=== PATIENT | female | born 1970 | race African-American/Black ===

== ENCOUNTER 2018-11-24 14:15 | Inpatient (IN) | payer OTHER ==
[~2018-11-24] VITALS: Ht 160 cm; Wt 74.0 kg
[2018-11-24] MEDS ORDERED: SODIUM CHLORIDE 0.9% 1,000 ML IVB ONE (14:34)
[2018-11-24 15:17] LABS: Basophils # (auto) 0.1 uL; Basophils % (auto) 1.1 % (0.0-2.0); Eosinophils # (auto) 0 uL; Eosinophils % (auto) 0.7 % (0.0-7.0); Lymphocytes # (auto) 2.2 uL; Lymphocytes % (auto) 37.9 % (10.0-50.0); Mean Corpuscular Hemoglobin 29.1 pg (28.0-32.0); Mean Corpuscular Hgb Conc. 32.6 g/dL (32.0-36.0); Mean Corpuscular Volume 89.3 fL (80.0-100.0); Monocytes # (auto) 0.4 uL; Monocytes % (auto) 7.7 % (0.0-12.0); Neutrophils % (auto) 52.6 % (37.0-80.0); Nucleated Red Blood Cells % 0.1 %; Platelet Count (auto) 250 10^3/uL (140-450); Red Blood Cells 4.82 10^6/uL (4.0-5.20); Red Cell Distribution Width 15.1 % (11.8-14.3); White Blood Cell 5.7 10^3/uL (4.4-10.8)
[2018-11-24 15:32] LABS: Albumin 3.6 g/dL (3.4-5.0); Calcium 8.6 mg/dL (8.5-10.1); INR < 0.93 (0.9-1.15); Magnesium 2.3 mg/dL (1.6-2.6)
[2018-11-24 15:37] LABS: BUN/Creatinine Ratio 12.2; Bilirubin, Total 0.3 mg/dL (0.2-1.0); Total Protein 8.6 g/dL (6.4-8.2)
[2018-11-24] MEDS ORDERED: HEPARIN 1,000 UNITS/ml 1ML VIAL IV ONE (16:00)
[2018-11-24] MEDS ORDERED: MORPHINE SULF INJ 2 MG/ML SYRINGE 1ML IV PRN ×2 (16:30)
[2018-11-24] MEDS ORDERED: HYDROcodone-ACET 5/325MG TAB PO PRN (16:30)
[2018-11-24] MEDS ORDERED: ACETAMINOPHEN 500 MG TAB PO PRN (16:30)
[2018-11-24] MEDS ORDERED: NITROGLYCERIN 0.4 MG SL TAB SL PRN (16:30)
[2018-11-24] MEDS ORDERED: ONDANSETRON HCL 4 MG/2 ML VIAL IV PRN (16:30)
[2018-11-24] MEDS ORDERED: hydrALAZINE HCL 20 MG/ML VL IV ONE (16:45)
[2018-11-24] MEDS ORDERED: NITROGLYCERIN 0.4MG/HR TOPICAL PATCH TD ONE (17:00)
[2018-11-24] MEDS ORDERED: cloNIDine HCL 0.1 MG TAB PO ONE (17:00)
[2018-11-24] MEDS ORDERED: METOPROLOL TARTRATE 1MG/1ML-5ML VIAL IV ONE (17:00)
[2018-11-24] MEDS ORDERED: CLOPIDOGREL 300 MG TAB PO ONE (17:15)
[2018-11-24] MEDS: SODIUM CHLORIDE 0.9% 1,000 ML IV SCH ×2 (17:36→20:37)
[2018-11-24] MEDS: hydrALAZINE HCL 20 MG/ML VL IV PRN (18:21)
[2018-11-24] MEDS ORDERED: HEPARIN DRIP/D5W 100UNITS/ML 250 ML IV SCH ×2 (19:43→21:30)
[2018-11-24] MEDS ORDERED: LIDOCAINE 2%HCL (LOCAL ANESTH.) INJ 20ML MDV ONE (20:36)
[2018-11-24] MEDS ORDERED: IOHEXOL 350 MG/ML 100ML IJ ONE ×2 (20:36→21:52)
[2018-11-24] MEDS: NITROGLYCERIN 50MG/250ML 250 ML IV SCH (20:39)
[2018-11-24] MEDS ORDERED: ANGIOMAX 250 MG VIAL IV ONE (20:42)
[2018-11-24] MEDS ORDERED: ATROPINE SULFATE 1 MG/1 ML VIAL ONE (20:43)
[2018-11-24] MEDS ORDERED: ADENOSINE 6 MG/2 ML INJ IV ONE (20:43)
[2018-11-24] MEDS ORDERED: EPINEPHrine HCL 1 MG/10 ML SYRG ONE (20:43)
[2018-11-24] MEDS ORDERED: MIDAZOLAM HCL 1MG/1ML-2 ML VIAL ONE (20:43)
[2018-11-24] MEDS ORDERED: fentaNYL CITRATE 100 MCG/2 ML VL ONE (20:43)
[2018-11-24] MEDS ORDERED: NICARDIPINE 25 MG/10 ML VIAL IV ONE (20:43)
[2018-11-24] MEDS ORDERED: SODIUM CHL 0.9% 50 ML ONE (20:44)
[2018-11-24] MEDS ORDERED: LABETALOL HCL 5 MG/ML ML 20ML VIAL IV ONE (21:38)
[2018-11-24] MEDS ORDERED: ENOXAPARIN SOD 80 MG/0.8ML SYRINGE SC SCH ×2 (22:00)
[2018-11-24] MEDS ORDERED: METOPROLOL TARTRATE 25 MG TAB PO SCH (22:00)
[2018-11-24] MEDS ORDERED: ATORVASTATIN 20 MG TAB PO SCH (22:00)
[2018-11-24] MEDS ORDERED: DOPamine 1600MCG/ML D5W 0 ML IV ONE (22:10)
[2018-11-24 22:45] LABS: Urine Bacteria NONE SEEN /hpf (None Seen); Urine Blood Negative /uL (Negative); Urine Specific Gravity 1.013 (1.001-1.035); Urine WBC 1 /hpf (0 - 5)
[2018-11-24 22:52] LABS: Alcohol, Urine < 3.0 mg/dL (0-5); Amphetamine Screen, Urine NEGATIVE (NEGATIVE); Barbiturate Scree,Urine NEGATIVE (NEGATIVE); Benzodiazephine Screen, Urine NEGATIVE (NEGATIVE); Cannabinoid Screen, Urine POSITIVE (NEGATIVE); Cocaine Screen, Urine NEGATIVE (NEGATIVE); Opiate Scree,Urine NEGATIVE (NEGATIVE); Phencyclidine Screen, Urine NEGATIVE (NEGATIVE)
[2018-11-25] VITALS (34 sets, daily range): BP systolic 97–166; BP diastolic 56–108
--- NOTE | 2018-11-25 00:05 | NUR ---
ICU pt S/P Cardiac Cath Report received from LEO Kapoor. FELISA HOROWITZ brought to bed 109 following Cardiac catheterization, on shelter monitor and portable oxygen. Patient transferred to ICU bed, connected to ICU monitoring and oxygen. Catheter remains in right groin. Patient educated on need to keep leg straight and flat. Patient verbalized understanding. Site assessed for any bleeding, redness or swelling. Pedal pulses on affected leg assessed for positive tissue perfusion. Patient instructed on need to notify staff immediately if any pain, burning or wetness to site, and any lower back pain. Patient educated on cardiac medications. Currently on tridil gtt at 12mcg/min. Will titrate according to blood pressure. Full assessment done see interventions. All questions and concerns addressed, patient verbalized understanding of all education and instruction.
[2018-11-25] MEDS: hydrALAZINE HCL 20 MG/ML VL IV PRN ×2 (03:52→18:27)
[2018-11-25 04:04] LABS: Basophils # (auto) 0 uL; Basophils % (auto) 0.6 % (0.0-2.0); Eosinophils # (auto) 0 uL; Hematocrit 38.8 % (36.0-46.0); Lymphocytes # (auto) 1.6 uL; Lymphocytes % (auto) 26.3 % (10.0-50.0); Mean Corpuscular Hgb Conc. 33.5 g/dL (32.0-36.0); Mean Corpuscular Volume 89.5 fL (80.0-100.0); Monocytes # (auto) 0.4 uL; Monocytes % (auto) 5.7 % (0.0-12.0); Neutrophils # (auto) 4.2 uL; Neutrophils % (auto) 67.4 % (37.0-80.0); Nucleated Red Blood Cells % 0.1 %; Platelet Count (auto) 222 10^3/uL (140-450); Red Blood Cells 4.34 10^6/uL (4.0-5.20); Red Cell Distribution Width 15.1 % (11.8-14.3); White Blood Cell 6.2 10^3/uL (4.4-10.8)
[2018-11-25 04:10] LABS: BUN/Creatinine Ratio 15.9; Calcium 8.1 mg/dL (8.5-10.1); Potassium 3.8 mmol/L (3.5-5.1)
[2018-11-25 04:11] LABS: INR 0.95 (0.9-1.15); Partial Thromboplastin Time 31.9 sec (23.64-32.05)
--- NOTE | 2018-11-25 05:00 | NUR ---
TRIDIL GTT TITRATED OFF AT THIS TIME. B/P 128/68
[2018-11-25 05:05] LABS: Cholesterol 461 mg/dL (< 200); HDL Cholesterol 46 mg/dL (40-59); LDL Cholesterol 322 mg/dL (< 100); Triglycerides 342 mg/dL (< 150)
[2018-11-25] MEDS ORDERED: METOPROLOL TARTRATE 50 MG TAB PO SCH (06:00)
[2018-11-25] MEDS: SODIUM CHLORIDE 0.9% 1,000 ML IV SCH ×2 (07:07→12:45)
--- NOTE | 2018-11-25 07:30 | NUR ---
Opening Shift Note: Report received from Charla BAILEY Patient had [facility] one stent placed by Dr. Robertson. Patient did well overnight. See interventions for further details.
--- NOTE | 2018-11-25 07:37 | NUR ---
End of shift note Report and care endorsed to day shift rn
[2018-11-25] MEDS: CLOPIDOGREL BISULFATE 75 MG TAB PO SCH (09:36)
[2018-11-25] MEDS: ASPirin-EC 81 mg tab PO SCH (09:36)
[2018-11-25] MEDS: LISINOPRIL 10 MG TAB PO SCH (09:36)
[2018-11-25] MEDS: FAMOTIDINE 20 MG TAB PO SCH (09:36)
--- NOTE | 2018-11-25 10:46 | NUR ---
Jennifer SEWING MACHINE OPERATOR PLASTIC ZIPPER at bedside: New orders [facility] scheduled for this afternoon, RCA needs stenting. Consent printed out and signed. lab courier ordered.To start heparin drip after Coag levels resulted.
[2018-11-25 11:49] LABS: INR 0.95 (0.9-1.15)
--- NOTE | 2018-11-25 12:30 | NUR ---
Dr. Alvarado at bedside: Went over disease process and getting control fo cholesterol levels. Patient needs medication adjustments. To follow up with Marshall after she is discharged from hospital.
--- NOTE | 2018-11-25 13:15 | NUR ---
Patient transported to test lab technician.
[2018-11-25] MEDS ORDERED: ANGIOMAX 250 MG VIAL IV ONE ×2 (13:20→14:28)
[2018-11-25] MEDS ORDERED: fentaNYL CITRATE 100 MCG/2 ML VL ONE ×2 (13:20→14:17)
[2018-11-25] MEDS ORDERED: IODIXANOL 320MG/ML 100ML BTL IV ONE (13:21)
[2018-11-25] MEDS ORDERED: MIDAZOLAM HCL 1MG/1ML-2 ML VIAL ONE ×4 (13:21→15:39)
[2018-11-25] MEDS ORDERED: SODIUM CHL 0.9% 50 ML ONE ×2 (13:21→14:28)
[2018-11-25] MEDS ORDERED: LIDOCAINE 2%HCL (LOCAL ANESTH.) INJ 20ML MDV ONE (13:21)
[2018-11-25] MEDS ORDERED: EPINEPHrine HCL 1 MG/10 ML SYRG ONE (13:28)
[2018-11-25] MEDS ORDERED: DOPamine 1600MCG/ML D5W 0 ML IV ONE (13:28)
[2018-11-25] MEDS ORDERED: ATROPINE SULFATE 1 MG/1 ML VIAL ONE (13:28)
[2018-11-25] MEDS ORDERED: VERAPAMIL 2.5MG/ML INJ 2ML VIAL IV ONE (13:29)
[2018-11-25] MEDS ORDERED: ONDANSETRON HCL 4 MG/2 ML VIAL ONE (14:08)
[2018-11-25] MEDS ORDERED: diphenhdrAMINE HCL 50 MG/1 ML VL ONE (14:08)
[2018-11-25] MEDS: METOPROLOL TARTRATE 50 MG TAB PO SCH ×2 (16:29→22:00)
--- NOTE | 2018-11-25 16:35 | NUR ---
Pt being admitted to ICU: COMING BACK FROM SUPERVISOR TUMBLERS with TR BAND to left wrist. CARLOS MANUELFELISA admitted to ICU via gurney on potline monitor, and portable 02. Patient transfered to bed, connected to ICU monitoring and oxygen. Patient lethargic,report received at bedside. TR band to left wrist. Aspirate air per protocol.Patient stable.
[2018-11-25] MEDS: NITROGLYCERIN 50MG/250ML 250 ML IV SCH (18:22)
--- NOTE | 2018-11-25 18:57 | NUR ---
End of Shift Note: Endorsed care to LEO Castellon.
--- NOTE | 2018-11-25 19:20 | NUR ---
open received report from day rn, assumed care of female pt. pt is room air, vs wnl. pt is alert and orientated x4, pt is connected to icu monitors. resperations equal and unlabored on room air. pt has iv 20 g to r forarm, iv to L forarm 20g. ivs are patent, dressings are clean dry and intact, no redness or swelling at the iv sites at this time. pt is able to ambulate. pillows in place under pts elbows to offload pressure for safety and comfort. bed is lowest position, wheels locked. pt educated continuous improvement specialist light, pt verbalized understanding. call light within reach. pt denies pain at this time. pt is in full view of nurses station, will continue to care for and monitor.
--- NOTE | 2018-11-25 19:45 | NUR ---
family at bedside
--- NOTE | 2018-11-25 21:30 | NUR ---
toilet pt called for assistance to be disconnected so the pt can get up and go to the toilet. pt was disconnected from icu monitors . pt asked if she would like assistance to the toilet, pt stated " no thank you, i got it." pt walked to toilet without need of assistance, pt returned to bed without assistance. pt used call light to inform rn that she needs to be re connected to icu monitors. pt re connected to icu monitors. pt denies pain at this time.
[2018-11-25] MEDS: ENOXAPARIN SOD 80 MG/0.8ML SYRINGE SC SCH (22:00)
[2018-11-25] MEDS: ATORVASTATIN 20 MG TAB PO SCH (22:32)
--- NOTE | 2018-11-25 22:40 | NUR ---
pt watching tv pt sitting up in bed watching tv. vs wnl, no ss of distress noted at this time, will continue to care for and monitor
--- NOTE | 2018-11-25 23:59 | NUR ---
pt appears to be sleeping pt appears to be sleeping, hob 30*, vs wnl, no ss of distress noted at this time
[2018-11-26] VITALS (25 sets, daily range): BP systolic 84–144; BP diastolic 44–104
--- NOTE | 2018-11-26 04:00 | NUR ---
hygiene bed bath provided and jenn change. suction tubing and canisters changed. pt tolerates care.
[2018-11-26 05:20] LABS: Basophils # (auto) 0.1 uL; Basophils % (auto) 0.9 % (0.0-2.0); Eosinophils # (auto) 0 uL; Eosinophils % (auto) 0.1 % (0.0-7.0); Hematocrit 35.5 % (36.0-46.0); Hemoglobin 11.8 g/dL (12.2-16.2); Lymphocytes # (auto) 2.7 uL; Lymphocytes % (auto) 41.5 % (10.0-50.0); Mean Corpuscular Hemoglobin 29.9 pg (28.0-32.0); Mean Corpuscular Hgb Conc. 33.3 g/dL (32.0-36.0); Mean Corpuscular Volume 89.8 fL (80.0-100.0); Monocytes # (auto) 0.4 uL; Monocytes % (auto) 6.8 % (0.0-12.0); Neutrophils # (auto) 3.3 uL; Neutrophils % (auto) 50.7 % (37.0-80.0); Nucleated Red Blood Cells % 0.1 %; Platelet Count (auto) 198 10^3/uL (140-450); Red Blood Cells 3.95 10^6/uL (4.0-5.20); Red Cell Distribution Width 15.1 % (11.8-14.3); White Blood Cell 6.4 10^3/uL (4.4-10.8)
[2018-11-26 05:46] LABS: Calcium 8.6 mg/dL (8.5-10.1); Potassium 3.9 mmol/L (3.5-5.1)
[2018-11-26 05:48] LABS: BUN/Creatinine Ratio 16.2
[2018-11-26] MEDS: SODIUM CHLORIDE 0.9% 1,000 ML IV SCH (05:53)
--- NOTE | 2018-11-26 07:15 | NUR ---
Opening Shift Note: Report received from Cande BAILEY Patient did well overnight, SR on the monitor. See Interventions for further details.
--- NOTE | 2018-11-26 08:45 | NUR ---
Jennifer GONZALEZ at bedside- Told her that we already started her on metoprolol for HTN, ordered by Dr. Alvarado.
--- NOTE | 2018-11-26 09:13 | NUR ---
Nutrition education: Went over foods that are considered heart healthy foods for plaque reduction or prevention in the arteries, recommended by the [place] [employer]. Patient responded well to the education.
[2018-11-26] MEDS: hydrALAZINE HCL 20 MG/ML VL IV PRN (09:26)
[2018-11-26] MEDS: FAMOTIDINE 20 MG TAB PO SCH (11:01)
[2018-11-26] MEDS: METOPROLOL TARTRATE 50 MG TAB PO SCH ×2 (11:01→22:46)
[2018-11-26] MEDS: ASPirin-EC 81 mg tab PO SCH (11:01)
[2018-11-26] MEDS: CLOPIDOGREL BISULFATE 75 MG TAB PO SCH (11:01)
[2018-11-26] MEDS: LISINOPRIL 10 MG TAB PO SCH (11:02)
[2018-11-26] MEDS: ENOXAPARIN SOD 80 MG/0.8ML SYRINGE SC SCH ×2 (11:02→22:47)
--- NOTE | 2018-11-26 12:20 | NUR ---
Dr. Alvarado at bedside: Repeat angio tomorrow. Colace for constipation.
[2018-11-26] MEDS ORDERED: DOCUSATE SOD 100 MG CAP PO PRN (15:45)
--- NOTE | 2018-11-26 18:00 | NUR ---
Patient eating healthy dinner that sister brought her.
[2018-11-26] MEDS: NITROGLYCERIN 50MG/250ML 250 ML IV SCH (18:07)
--- NOTE | 2018-11-26 18:08 | NUR ---
Colace given for constipation.
--- NOTE | 2018-11-26 19:06 | NUR ---
End of Shift Note: Endorsed care to LEO Castellon.
--- NOTE | 2018-11-26 19:15 | NUR ---
open received report from day rn, assumed care of female pt. vs wnl. pt is alert and orientated x4, pt is connected to icu monitors. respirations equal and unlabored on room air. pt has iv 20 g to r forearm, iv to L forearm 20g. ivs are patent, dressings are clean dry and intact, no redness or swelling at the iv sites at this time. pt is able to ambulate. pillows in place under pts elbows to offload pressure for safety and comfort. pt is sitting in bed and appears to be listening to music, hob 30*, bed is lowest position, wheels locked. pt educated net developer consultant light, pt verbalized understanding. call light within reach. pt denies pain at this time. pt is in full view of nurses station, will continue to care for and monitor.
--- NOTE | 2018-11-26 21:45 | NUR ---
npo after midnight pt informed she needs to remain npo (nothing by mouth) after midnight. pt verbalized understanding.
[2018-11-26] MEDS: ATORVASTATIN 20 MG TAB PO SCH (22:46)
[2018-11-27] VITALS (43 sets, daily range): BP systolic 97–199; BP diastolic 51–109
--- NOTE | 2018-11-27 03:50 | NUR ---
hygiene jenn changed , suction canisters changed. vs wnl, no ss of distress noted at this time.
--- NOTE | 2018-11-27 05:07 | NUR ---
sleeping pt appears to be sleeping in bed. hob 30*,2 side rails locked. vs wnl. no ss of distress noted at this time.
[2018-11-27] MEDS: SODIUM CHLORIDE 0.9% 1,000 ML IV SCH ×2 (07:00→19:06)
--- NOTE | 2018-11-27 08:00 | NUR ---
ASSESSMENT COMPLETED SEE INTERVENTIONS, PATIENT A/O X4, DENIES ANY PAIN INCLUDING ANY CHEST PAIN, VS STABLE. WALKED STEADILY WITH NONSKID SOCKS TO USE TOILET/SINK. BACK TO BED AND CALL LIGHT IN REACH.
--- NOTE | 2018-11-27 08:20 | NUR ---
THERMOMETER PRODUCTION WORKER CALLED AND STATED OK FOR LIGHT BREAKFAST DUE TO PROCEDURE LATER THIS AFTERNOON. PATIENT GIVEN BREAKFAST TRAY.
[2018-11-27] MEDS: ENOXAPARIN SOD 80 MG/0.8ML SYRINGE SC SCH ×2 (10:00→22:02)
[2018-11-27] MEDS: FAMOTIDINE 20 MG TAB PO SCH (10:00)
[2018-11-27] MEDS: CLOPIDOGREL BISULFATE 75 MG TAB PO SCH (10:00)
[2018-11-27] MEDS: ASPirin-EC 81 mg tab PO SCH (10:07)
[2018-11-27] MEDS: LISINOPRIL 10 MG TAB PO SCH (10:11)
[2018-11-27] MEDS: METOPROLOL TARTRATE 50 MG TAB PO SCH ×2 (10:11→22:02)
--- NOTE | 2018-11-27 10:18 | NUR ---
PATIENT GIVEN ASA ORDERED WITH VERBAL OK FROM SAMMY GONZALEZ. AWARE RN HELD LOVENOX/PLAVIX FOR HEART CATH PROCEDURE LATER THIS AFTERNOON.
[2018-11-27 10:23] LABS: Basophils # (auto) 0.1 uL; Basophils % (auto) 1.6 % (0.0-2.0); Eosinophils # (auto) 0 uL; Eosinophils % (auto) 0.5 % (0.0-7.0); Hematocrit 37.2 % (36.0-46.0); Hemoglobin 12.3 g/dL (12.2-16.2); Lymphocytes # (auto) 2.8 uL; Lymphocytes % (auto) 52.4 % (10.0-50.0); Mean Corpuscular Hemoglobin 29.5 pg (28.0-32.0); Mean Corpuscular Hgb Conc. 33.1 g/dL (32.0-36.0); Mean Corpuscular Volume 88.9 fL (80.0-100.0); Monocytes # (auto) 0.5 uL; Monocytes % (auto) 8.9 % (0.0-12.0); Neutrophils # (auto) 1.9 uL; Neutrophils % (auto) 36.6 % (37.0-80.0); Nucleated Red Blood Cells % 0.1 %; Platelet Count (auto) 205 10^3/uL (140-450); Red Blood Cells 4.18 10^6/uL (4.0-5.20); Red Cell Distribution Width 14.8 % (11.8-14.3); White Blood Cell 5.2 10^3/uL (4.4-10.8)
[2018-11-27 10:58] LABS: Albumin 3.4 g/dL (3.4-5.0); BUN/Creatinine Ratio 17.4; Calcium 8.6 mg/dL (8.5-10.1); Magnesium 2.2 mg/dL (1.6-2.6)
[2018-11-27 11:00] LABS: INR < 0.93 (0.9-1.15); Partial Thromboplastin Time 32.7 sec (23.64-32.05)
[2018-11-27 11:01] LABS: Bilirubin, Total 0.3 mg/dL (0.2-1.0); Total Protein 7.4 g/dL (6.4-8.2)
[2018-11-27] MEDS: hydrALAZINE HCL 20 MG/ML VL IV PRN (11:02)
--- NOTE | 2018-11-27 11:06 | NUR ---
APRESOLINE GIVEN FOR SBP ABOVE 160 -SEE VS SPREADSHEET
--- NOTE | 2018-11-27 11:55 | NUR ---
Estimated needs based on AJBW 57.6 kg-maintenance factors 2488-5660 kcal (22-25 kcal/kg) 46-58 g protein (0.8-1.0 g/kg) Addendum: 11/27/18 at [address] Amended: Links added.
--- NOTE | 2018-11-27 12:00 | NUR ---
SEE VS SPREADSHEET SBP REDUCED SINCE APRESOLINE GIVEN
[2018-11-27] MEDS ORDERED: LIDOCAINE 2%HCL (LOCAL ANESTH.) INJ 20ML MDV ONE (14:56)
[2018-11-27] MEDS ORDERED: IOHEXOL 350 MG/ML 100ML IJ ONE ×2 (14:56→15:22)
--- NOTE | 2018-11-27 15:04 | NUR ---
TRANSPORTED IN STABLE CONDITION TO RN [place] FOR PROCEDURE
[2018-11-27] MEDS ORDERED: MIDAZOLAM HCL 1MG/1ML-2 ML VIAL ONE (15:11)
[2018-11-27] MEDS ORDERED: fentaNYL CITRATE 100 MCG/2 ML VL ONE (15:11)
[2018-11-27] MEDS ORDERED: ANGIOMAX 250 MG VIAL IV ONE ×2 (15:11→16:32)
[2018-11-27] MEDS ORDERED: IODIXANOL 320MG/ML 100ML BTL IV ONE (15:12)
[2018-11-27] MEDS ORDERED: SODIUM CHL 0.9% 50 ML ONE ×2 (15:12→16:32)
[2018-11-27] MEDS ORDERED: EPINEPHrine HCL 1 MG/10 ML SYRG ONE (15:36)
[2018-11-27] MEDS ORDERED: ATROPINE SULFATE 1 MG/1 ML VIAL ONE (15:36)
[2018-11-27] MEDS ORDERED: DOPamine 1600MCG/ML D5W 0 ML IV ONE (15:36)
[2018-11-27] MEDS ORDERED: METOPROLOL TARTRATE 1MG/1ML-5ML VIAL IV ONE (16:16)
[2018-11-27] MEDS ORDERED: hydrALAZINE HCL 20 MG/ML VL ONE (16:39)
--- NOTE | 2018-11-27 17:15 | NUR ---
ARRIVED BACK FROM AUTOMOTIVE PRODUCT ENGINEER IN STABLE CONDITION VS STABLE RIGHT GROIN DSG CDI AND PULSES PALPABLE TO BILATERAL DORSALIS PEDIS. LAYING FLAT FOR 2 HRS PER AUTOMOTIVE PRODUCT ENGINEER REPORT AND PATIENT VERBALIZED UNDERSTANDING. DENIES ANY PAIN.
--- NOTE | 2018-11-27 19:30 | NUR ---
REPORT GIVEN TO MENDOZA BAILEY, PATIENT REMAINED STABLE AFTER HEART CATH WITH RIGHT GROIN DSG CDI AND NO SIGNS OF HEMATOMA OR BLEEDING ASSESSED WITH VS STABLE PER AIR BRUSH OPERATOR POST OP PROTOCOL. SEE VS SPREADSHEET FOR VS.
--- NOTE | 2018-11-27 19:30 | NUR ---
Initial Assessment Patient received laying on bed watching television. Patient is awake, alert, and oriented x4. patient denies any s/s of chest pain or discomfort. RR even and unlabored with equal rise and fall on room air. IV sites intact and patent with no s/s of infiltration or phlebitis noted-saline locked. Abd soft and non-tender. Right groin incision site benign with no s/s of bleeding, ecchymosis, or hematoma present. Neurovascular status intact with palpable distal pulses, skin warm to touch, capillary refill brisk. Patient educated about how to use the call light and encouraged to call when needing any assistance or wanting to get OOB and patient verbalized understanding. Bed in lowest position, side rails up, bed brakes set. All vital stable. Call light and side table are within reach. No concerns or complaints voiced from patient. Continue close monitoring.
[2018-11-27] MEDS: NITROGLYCERIN 50MG/250ML 250 ML IV SCH (19:43)
--- NOTE | 2018-11-27 19:45 | NUR ---
[facility] call Workforce Development Program Director from [place] called. They state they may transfer her tomorrow but not tonight.
[2018-11-27] MEDS: ATORVASTATIN 20 MG TAB PO SCH (22:02)
[2018-11-28] VITALS (53 sets, daily range): BP systolic 118–192; BP diastolic 62–112
--- NOTE | 2018-11-28 01:00 | NUR ---
Ongoing Assessment Patient ambulates to the bathroom with standby assist without incident-has voided 3 times. Currently laying in bed with RR even and unlabored appears to be sleeping but awakens easily to verbal stimuli. HOB elevated. RR even and unlabored with equal rise and fall. No S/S of distress-states she feels much better after Morphine administration. IV sites intact and patent. Abd soft and non-tender. Groin incision site remains benign with no s/s of hematoma, bleeding, or ecchymosis present-denies pain. Provided with Jello and crackers per patient request and she ate 100%. She is drinking water frequently. Bed in lowest position, side rails up, bed brakes set, all alarms audible. Continue close monitoring.
--- NOTE | 2018-11-28 05:00 | NUR ---
Ongoing Assessment Patient ambulated to the bathroom with standby assist two additional times. Continues to sleep intermittently. HOB elevated. RR even and unlabored with equal rise and fall. No S/S of distress-denies pain. IV sites intact and patent. Abd soft and non-tender. Groin incision site remains benign with no s/s of hematoma, bleeding, or ecchymosis present-denies pain. Neurovascular status remains intact with palpable distal pulses, skin warm to touch, capillary refill brisk. Bed in lowest position, side rails up, bed brakes set, all alarms audible. Continue close monitoring.
--- NOTE | 2018-11-28 07:00 | NUR ---
Report given No changes or incidents to report. Patient resting with no s/s of distress or pain. Right groin incision site remains benign and neurovascular status intact and unchanged. All vitals stable. All fall/safety precautions intact. Care endorsed to day shift RN.
--- NOTE | 2018-11-28 07:00 | NUR ---
REPORT RECEIVED, ASSUMING CARE, PATIENT SLEEPING AT THIS TIME WITH VS STABLE AND NO S/S RESP DISTRESS
[2018-11-28 08:08] LABS: Basophils # (auto) 0.1 uL; Basophils % (auto) 1.9 % (0.0-2.0); Eosinophils # (auto) 0 uL; Eosinophils % (auto) 0.6 % (0.0-7.0); Hematocrit 38.1 % (36.0-46.0); Hemoglobin 12.8 g/dL (12.2-16.2); Lymphocytes # (auto) 2.2 uL; Lymphocytes % (auto) 31.9 % (10.0-50.0); Mean Corpuscular Hemoglobin 30.1 pg (28.0-32.0); Mean Corpuscular Hgb Conc. 33.7 g/dL (32.0-36.0); Mean Corpuscular Volume 89.5 fL (80.0-100.0); Monocytes # (auto) 0.5 uL; Monocytes % (auto) 6.4 % (0.0-12.0); Neutrophils # (auto) 4.2 uL; Neutrophils % (auto) 59.2 % (37.0-80.0); Nucleated Red Blood Cells % 0.2 %; Platelet Count (auto) 209 10^3/uL (140-450); Red Blood Cells 4.26 10^6/uL (4.0-5.20); Red Cell Distribution Width 14.9 % (11.8-14.3)
[2018-11-28 08:28] LABS: Albumin 3.3 g/dL (3.4-5.0); Calcium 8.7 mg/dL (8.5-10.1); Magnesium 2.2 mg/dL (1.6-2.6); Potassium 3.7 mmol/L (3.5-5.1)
--- NOTE | 2018-11-28 08:30 | NUR ---
ASSESSMENT COMPLETED SEE INTERVENTIONS PATIENT A/O X4 STATES SHE HAS A "SMALL AMOUNT OF CHEST PAIN BUT NOT ENOUGH FOR MEDICATION" CONT TO MONITOR. RN EDUCATED ON MAKING RN AWARE IF CHEST PAIN INCREASES AND PATIENT VERBALIZED UNDERSTANDING. CALL LIGHT IN REACH.
[2018-11-28 08:32] LABS: Bilirubin, Total 0.4 mg/dL (0.2-1.0); Total Protein 8.1 g/dL (6.4-8.2)
[2018-11-28] MEDS: CLOPIDOGREL BISULFATE 75 MG TAB PO SCH (09:48)
[2018-11-28] MEDS: ASPirin-EC 81 mg tab PO SCH (09:48)
[2018-11-28] MEDS: LISINOPRIL 10 MG TAB PO SCH (09:49)
[2018-11-28] MEDS: METOPROLOL TARTRATE 50 MG TAB PO SCH ×2 (09:49→21:49)
[2018-11-28] MEDS: ENOXAPARIN SOD 80 MG/0.8ML SYRINGE SC SCH ×2 (09:49→21:48)
[2018-11-28] MEDS: SODIUM CHLORIDE 0.9% 1,000 ML IV SCH (10:37)
[2018-11-28] MEDS: FAMOTIDINE 20 MG TAB PO SCH (10:37)
--- NOTE | 2018-11-28 11:50 | NUR ---
DR AVALOS AT BEDSIDE, EXAMINED AND SPOKE WITH PATIENT REGARDING CARDIAC STATUS. DR AVALOS GAVE OK TO DOWNGRADE TO TELE FLOOR. DR Lexy MERA AWARE AND AGREES TO DOWNGRADE TO TELE WELL. [place] HISTORY PROFESSOR AWARE.
--- NOTE | 2018-11-28 11:53 | NUR ---
HOUSE SUP AWARE PATIENT IS TELE STATUS
--- NOTE | 2018-11-28 13:23 | NUR ---
TELEPHONE REPORT GIVEN TO DESTINI Adams, PATIENT WILL BE GOING TO ROOM 206
--- NOTE | 2018-11-28 13:55 | NUR ---
TRANSFERRED TO ROOM 206 ON TELE MONITOR WITH ALL BELONGINGS IN STABLE CONDITION. DESTINI BAILEY AWARE PATIENT ARRIVAL.
--- NOTE | 2018-11-28 19:30 | NUR ---
Opening Shift Note Assumed care of patient, alert and oriented x 4. No S/S of distress/SOB or pain. On room air and ambulatory. Bed in lowest locked position, side rails up x 2, call light within reach. Instructed on POC and to call for assist PRN, will continue to monitor for changes Q1hr and PRN.
[2018-11-28] MEDS: ATORVASTATIN 20 MG TAB PO SCH (21:48)
[2018-11-29 05:24] VITALS: BP 104/58
--- NOTE | 2018-11-29 07:17 | NUR ---
Closing shift note Patient resting in bed, no S/S of distress noted. Endorsed care to dayshift LEO Boles.
--- NOTE | 2018-11-29 07:30 | NUR ---
Opening Shift Note RECEIVED REPORT FROM NOC RN. Assumed care of patient, awake and alert. No S/S of distress/SOB or pain. BED IN LOWEST, LOCKED POSITION WITH SIDERAILS UP x2. Instructed on POC and to call for assist PRN, will continue to monitor for changes Q1hr and PRN.
--- NOTE | 2018-11-29 08:52 | NUR ---
DR. Lexy MERA AT BEDSIDE.
[2018-11-29 09:00] VITALS: BP 102/60
[2018-11-29] MEDS: ENOXAPARIN SOD 80 MG/0.8ML SYRINGE SC SCH (10:07)
[2018-11-29] MEDS: ASPirin-EC 81 mg tab PO SCH (10:07)
[2018-11-29] MEDS: FAMOTIDINE 20 MG TAB PO SCH (10:07)
[2018-11-29] MEDS: CLOPIDOGREL BISULFATE 75 MG TAB PO SCH (10:07)
[2018-11-29] MEDS: METOPROLOL TARTRATE 50 MG TAB PO SCH (10:08)
[2018-11-29] MEDS: LISINOPRIL 10 MG TAB PO SCH (10:08)
--- NOTE | 2018-11-29 11:00 | NUR ---
PER DR. AVALOS, PATIENT IS CLEAR FOR DISCHARGE FROM CARDIOLOGY.
[2018-11-29 13:00] VITALS: BP 149/83
[2018-11-29 15:36] VITALS: BP 149/83
== END 2018-11-29 16:22 | disposition home or self-care (01) | DRG 247 ==
LOC: EDBD 14:15 → ER 14:15 → TELE 14:16 → ICU WEST 23:12 → TELE-CENTR 11-28 14:09
PROVIDERS: ADMIT Nurse Practitioner Acute Care; ATTEND Internal Medicine
PROC: 027034Z Dilation of Coronary Artery, One Artery with Drug-eluting Intraluminal Device, Percutaneous Approach (ICD-10-PCS; principal; 2018-11-24)
PROC: 4A023N7 Measurement of Cardiac Sampling and Pressure, Left Heart, Percutaneous Approach (ICD-10-PCS; 2018-11-24)
PROC: B2111ZZ Fluoroscopy of Multiple Coronary Arteries using Low Osmolar Contrast (ICD-10-PCS; 2018-11-24)
PROC: B2151ZZ Fluoroscopy of Left Heart using Low Osmolar Contrast (ICD-10-PCS; 2018-11-24)
PROC: B41C1ZZ Fluoroscopy of Pelvic Arteries using Low Osmolar Contrast (ICD-10-PCS; 2018-11-24)
PROC: 02703ZZ Dilation of Coronary Artery, One Artery, Percutaneous Approach (ICD-10-PCS; 2018-11-25)
PROC: 02703ZZ Dilation of Coronary Artery, One Artery, Percutaneous Approach (ICD-10-PCS; 2018-11-27)
DX: I21.4 Non-ST elevation (NSTEMI) myocardial infarction (principal); I16.9 Hypertensive crisis, unspecified; I10 Essential (primary) hypertension; E78.5 Hyperlipidemia, unspecified; E78.00 Pure hypercholesterolemia, unspecified; E66.9 Obesity, unspecified; I25.10 Atherosclerotic heart disease of native coronary artery without angina pectoris; I25.2 Old myocardial infarction; R73.03 Prediabetes; Z79.02 Long term (current) use of antithrombotics/antiplatelets; Z79.82 Long term (current) use of aspirin; Z79.899 Other long term (current) drug therapy; Z95.5 Presence of coronary angioplasty implant and graft; F12.10 Cannabis abuse, uncomplicated
CPT/HCPCS: 36415; 71045; 75736; 80048; 80053; 80061; 80307; 81001; 82565; 83036; 83735; 83880; 84484; 85025; 85610; 85730; 86141; 86850; 86900; 86901; 87081; 92920; 92928; 93005; 93306; 93458; 96361; 96374; 96375; 99152; 99153; 99291; A4565; C1874; C1887; G0378; J0153; J0461; J1642; J2250; J2405; Q9967